=== PATIENT | female | born 1965 | race Caucasian/White ===

== ENCOUNTER 2019-11-22 12:20 | Outpatient (CLI) | payer OTHER | END 2019-11-22 23:59 | disposition short-term general hospital (02) | LOC: EMS 12:20 | PROVIDERS: ATTEND Surgery | DX: S89.91XA Unspecified injury of right lower leg, initial encounter (principal); W54.1XXA Struck by dog, initial encounter; Y92.007 Garden or yard of unspecified non-institutional (private) residence as the place of occurrence of the external cause | CPT/HCPCS: A0425; A0429 ==

== ENCOUNTER 2019-12-04 15:46 | Outpatient (CLI) | payer OTHER ==
--- NOTE | 2019-12-05 09:00 | MRI Report ---
Reason: DISLOCATION OF RIGHT KNEE Procedure Date: 12/04/2019 Accession Number: [id number] / [id number] Procedure: MRI - Knee RT W/O CPT Code: Final Report FULL RESULT: EXAM: RIGHT KNEE MRI WITHOUT CONTRAST EXAM DATE: 12/04/2019 04:53 PM. CLINICAL HISTORY: Right knee dislocation after dogs ran into the lateral side of her knee 2 weeks ago. Inability to bear weight. Medial knee pain. COMPARISON: None. TECHNIQUE: Multiplanar, multisequence T1-weighted and fluid-sensitive sequences of the knee without contrast. Other: None. FINDINGS: Bones: Bony contusions in the lateral femoral condyle and medial tibial plateau. No gross fractures. Articular Cartilage: The patellar cartilage is intact. There is mild thinning of the medial trochlear articular cartilage. The inferior lateral femoral condylar articular cartilage has mild thinning. Mild thinning is at the medial compartment articular cartilage. Medial Meniscus: A parrot beak tear of the inner margin of the posterior horn of the medial meniscus is accompanied by a separate horizontal tear (series 601, image 8). Lateral Meniscus: The lateral meniscus is intact. Cruciate Ligaments: The anterior cruciate ligament is completely torn. The posterior cruciate ligament has a high-grade proximal tear, likely partial. Collateral Ligaments: The medial collateral ligament is completely torn proximally with retraction/separation of 2.2 cm. The lateral collateral ligamentous structures are intact. Tendons: The quadriceps, patellar, semimembranosus, and popliteus tendons are unremarkable. Musculature: No edema or fatty atrophy. Other: A large knee effusion is demonstrated. Debris is in the suprapatellar bursa. No popliteal cyst. No loose bodies. The medial and lateral retinacula are intact. Prepatellar diffuse subcutaneous edema is present. IMPRESSION: 1. Lateral sided bony contusions. 2. Complex tear of the medial meniscus. 3. Complete tear of the anterior cruciate ligament. 4. High-grade tear of the proximal posterior cruciate ligament. 5. Large knee effusion. 6. Complete proximal tear of the medial collateral ligament. [facility]
== END 2019-12-04 15:47 | disposition home or self-care (01) ==
LOC: DI 15:46
PROVIDERS: ATTEND Orthopaedic Surgery
DX: S83.231A Complex tear of medial meniscus, current injury, right knee, initial encounter (principal); S83.511A Sprain of anterior cruciate ligament of right knee, initial encounter; S83.521A Sprain of posterior cruciate ligament of right knee, initial encounter; M25.461 Effusion, right knee; S83.411A Sprain of medial collateral ligament of right knee, initial encounter; S70.11XA Contusion of right thigh, initial encounter

== ENCOUNTER 2022-04-23 19:09 | Outpatient (CLI) | payer OTHER | END 2022-04-23 19:10 | disposition home or self-care (01) | LOC: EMS 19:09 | DX: T63.461A Toxic effect of venom of wasps, accidental (unintentional), initial encounter (principal); L50.9 Urticaria, unspecified; R11.2 Nausea with vomiting, unspecified; R53.1 Weakness; R25.1 Tremor, unspecified | CPT/HCPCS: A0425; A0429 ==